=== PATIENT | female | born 1950 | race Caucasian/White ===

== ENCOUNTER → 2016-10-03 | Outpatient (CLI) | payer BC ==
[~2016-10-03] MED LIST: ACTIVELLA 1 MG-1 TAB PO; ALLEGRA60 MG PO; CALCIUM200 MG PO; CAP Z1 CRE TP; CIPRO 500MG TA500 MG PO; CLOBETASOL0.05% TP; DOVONEX0.005% TP; HYOMAX0.125 MG PO; MOTRIN800 MG PO; MULTIPLE VITAMI1 CAP PO; NASONEX0.05 MG/AC NS; PATANOL OPHTHALM5 ML; PRILOSEC 10MG10 MG PO; PROMETHAZINE12.5 M5 PO; PROVENTIL0.09 MG/A1 IH; TRIAMTERENE/HCT1 CAP PO; ZITHROMAX 250M250 MG PO
== END ==
LOC: MC.RAD 07:40
DX: Z12.31 Encounter for screening mammogram for malignant neoplasm of breast (principal); Z80.3 Family history of malignant neoplasm of breast

== ENCOUNTER 2017-06-24 15:02 | Inpatient (IN) | payer BC, MEDICARE ==
[~2017-06-24] VITALS: Ht 152.4 cm; Wt 66.2 kg
[2017-08-18] VITALS (10 sets, daily range): BP systolic 85–129; BP diastolic 57–76; PULSE 52–80; TEMP 98–98.6
[2017-08-18 05:54] LABS: COLLECTION METHOD CATHETER
[2017-08-18] MEDS ORDERED: CIPRO 500MG TA500 MG PO (06:00)
[2017-08-18 06:11] LABS: PH 7 (5-8); SQUAMOUS EPITHELIAL 0-2 /hpf; URINE APPEARANCE Clear; URINE BACTERIA None Seen /hpf; URINE BILIRUBIN Negative (NEGATIVE); URINE BLOOD Negative (NEGATIVE); URINE COLOR Straw; URINE GLUCOSE Negative (NEGATIVE); URINE KETONE Negative (NEGATIVE); URINE LEUKOCYTE ESTERASE Negative (NEGATIVE); URINE PROTEIN(semi-quant) Negative (NEGATIVE); URINE RBC 0-2 /hpf; URINE UROBILINOGEN Negative (NEGATIVE); URINE WBC 0-2 /hpf
[2017-08-18] MEDS ORDERED: TOPROL XL 25MG25 MG PO (06:21)
[2017-08-18] MEDS ORDERED: LEVSIN0.125 M1 PO (06:22)
[2017-08-18] MEDS ORDERED: PRILOSEC 20MG20 MG PO (06:23)
[2017-08-18] MEDS ORDERED: PROAIR HFA0.09 MG/AC IH (06:24)
[2017-08-18] MEDS ORDERED: PAMELOR 25MG25 MG PO (06:25)
[2017-08-18] MEDS ORDERED: K-DUR 10 MEQ T10 MEQ PO (06:25)
[2017-08-18] MEDS ORDERED: CALCIUM CARBON650 M2 PO (06:26)
[2017-08-18] MEDS ORDERED: DOVONEX CR60 G2 TP (06:26)
[2017-08-19] VITALS (7 sets, daily range): BP systolic 98–130; BP diastolic 51–76; PULSE 67–103; TEMP 98–98.6
[2017-08-19] MEDS ORDERED: ASPI325T6 PO (06:19)
[2017-08-19] MEDS ORDERED: CELEBREX 200MG200 MG PO (06:19)
[2017-08-19] MEDS ORDERED: NORCO 325 MG-7.1 TAB PO (06:20)
[2017-08-19] MEDS ORDERED: ULTRAM 50MG TAB50 MG PO (06:20)
[2017-08-19 07:13] LABS: HEMATOCRIT 28.9 % (37.0-47.0); HEMOGLOBIN 10.3 g/dl (12.5-16.0)
[2017-08-20 04:54] VITALS: BP 119/60; PULSE 99; TEMP 98.4
[2017-08-20 08:55] VITALS: BP 124/67; PULSE 87; TEMP 98.2
[2017-08-20 11:25] VITALS: BP 100/58; PULSE 67; TEMP 97.3
== END 2017-08-20 14:00 | disposition home or self-care (01) | DRG 470 ==
LOC: JCC 08-18 05:12
PROVIDERS: Orthopaedic Surgery; Physician Assistant
PROC: 0SRC0J9 Replacement of Right Knee Joint with Synthetic Substitute, Cemented, Open Approach (ICD-10-PCS; principal; 2017-08-18 07:30)
DX: M17.11 Unilateral primary osteoarthritis, right knee (principal); I10 Essential (primary) hypertension
CPT/HCPCS: A4314; A9284; C1713; C1776; J0690; J1100; J1885; J2250; J2270; J2370; J2405; J2550; J2704; J3010; J7120

== ENCOUNTER → 2017-08-27 | Outpatient (CLI) | payer BC ==
[~2017-08-27] MED LIST changes: +ASPI325T6 PO; +CALCIUM CARBON650 M2 PO; +CELEBREX 200MG200 MG PO; +DOVONEX CR60 G2 TP; +K-DUR 10 MEQ T10 MEQ PO; +LEVSIN0.125 M1 PO; +NORCO 325 MG-7.1 TAB PO; +PAMELOR 25MG25 MG PO; +PRILOSEC 20MG20 MG PO; +PROAIR HFA0.09 MG/AC IH; +TOPROL XL 25MG25 MG PO; +ULTRAM 50MG TAB50 MG PO
== END ==
LOC: COL.VAS 08:29
DX: Z47.1 Aftercare following joint replacement surgery (principal); M79.661 Pain in right lower leg; R60.0 Localized edema; Z96.651 Presence of right artificial knee joint

== ENCOUNTER → 2017-10-07 | Outpatient (CLI) | payer BC | LOC: MC.RAD 06:54 | DX: Z12.31 Encounter for screening mammogram for malignant neoplasm of breast (principal) ==

== ENCOUNTER → 2018-08-31 | Outpatient (CLI) | payer BC | LOC: COL.RAD 09:00 | DX: K76.0 Fatty (change of) liver, not elsewhere classified (principal) ==

== ENCOUNTER → 2018-10-08 | Outpatient (CLI) | payer BC, MEDICARE | LOC: MC.RAD 09:00 | DX: Z12.31 Encounter for screening mammogram for malignant neoplasm of breast (principal); Z98.82 Breast implant status ==

== ENCOUNTER → 2019-10-25 | Outpatient (CLI) | payer BC | LOC: MC.RAD 08:41 | DX: Z12.31 Encounter for screening mammogram for malignant neoplasm of breast (principal); Z98.82 Breast implant status ==

== ENCOUNTER → 2020-10-27 | Outpatient (CLI) | payer BC | LOC: MC.RAD 08:45 | DX: Z12.31 Encounter for screening mammogram for malignant neoplasm of breast (principal) ==

== ENCOUNTER → 2021-12-18 | Outpatient (CLI) | payer MEDICARE, BC | LOC: MC.RAD 10-29 08:45 | DX: Z12.31 Encounter for screening mammogram for malignant neoplasm of breast (principal) ==

== ENCOUNTER 2023-01-14 09:57 | Emergency (ER) | payer MEDICARE, BC ==
[~2023-01-14] VITALS: Ht 152.4 cm; Wt 63.6 kg
[2023-01-14] MEDS ORDERED: CEPHALEXIN500 M1 PO (11:04)
[2023-01-14 13:10] VITALS: BP 152/80; PULSE 88; TEMP 98.5
== END 2023-01-14 13:42 | disposition home or self-care (01) ==
LOC: COL.ER 09:57
DX: S02.2XXA Fracture of nasal bones, initial encounter for closed fracture (principal); S01.511A Laceration without foreign body of lip, initial encounter; Z23 Encounter for immunization; Z88.1 Allergy status to other antibiotic agents; W01.198A Fall on same level from slipping, tripping and stumbling with subsequent striking against other object, initial encounter

== ENCOUNTER → 2023-01-16 | Outpatient (CLI) | payer MEDICARE, BC ==
[~2023-01-16] MED LIST changes: +CEPHALEXIN500 M1 PO
== END ==
LOC: MC.RAD 08:23
DX: Z12.31 Encounter for screening mammogram for malignant neoplasm of breast (principal)